=== PATIENT | female | born 1990 | race Caucasian/White ===

== ENCOUNTER 2020-05-07 14:14 | Emergency (ER) | payer MEDICAID, SELFPAY ==
[2020-05-07 14:23] VITALS: BP 129/78; PULSE 62; RESP 16; TEMP 36.5; O2SAT 98; BMI 20.7
--- NOTE | 2020-05-07 14:48 | XR_ITS ---
EXAMINATION: XR LUMBOSACRAL SPINE CLINICAL INFORMATION: Pain following fall COMPARISON: Remote CT abdomen and pelvis 04/12/2017, axial views. TECHNIQUE: Three views of the lumbosacral spine. FINDINGS: There is normal lumbar segmentation with 5 nonrib-bearing lumbar vertebrae of normal height and normal lumbar lordosis. There is gentle levocurvature. Limbus vertebrae is seen at anterior superior corner L5, in retrospect suggested on prior CT 2007 (series 102 image 95/175). There is no lumbar vertebral compression or visible acute fracture or spondylolisthesis. No focal disc narrowing. The SI joints and visualized sacrum are unremarkable. XR/XR lumbar spine 2-3V IMPRESSION: 1. Gentle levocurvature lumbar spine. Normal lumbar lordosis. 2. 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 3. No acute vertebral compression, spondylolisthesis, disc narrowing.
--- NOTE | 2020-05-07 16:12 | ED.BACK ---
HPI - Back Pain/Injury General Chief Complaint: Back Pain/Injury Stated Complaint: fell hurt back Time Seen by Provider: 05/07/20 14:48 Source: patient Mode of arrival: ambulatory Limitations: no limitations History of Present Illness HPI Narrative: 29-year-old female who denies any significant past medical history presents today with complaint of lower back pain pain status post fall yesterday. States she was mopping and had a fall where she slipped and tried to prevent her fall which she was able to but still landed on her buttock. States she felt like she pulled her muscle and has been having pain more in the lower lateral aspect of the back. She otherwise denies any GI symptoms. No radiation of pain. Pain improved with immobilization worsen with certain movements. Prior history of back problems. Pertinent past history: prior back pain and recent trauma Timing: intermittent Severity: mild Similar Symptoms Previously: Yes Quality: aching Radiation: none Exacerbating factors: none Associated symptoms: denies other symptoms Treatments prior to arrival: cold therapy Work related injury: No Related Data Previous Rx's Medication Instructions Recorded cyclobenzaprine 5 mg PO TID PRN #14 tab 05/07/20 ibuprofen 800 mg PO Q8H PRN #30 tab 05/07/20 Allergies Allergy/AdvReac Type Severity Reaction Status Date / Time amoxicillin [AMOXICILLIN] Allergy Severe SWELLING, Unverified 01/08/20 16:43 DIFFICULTY BREATHING, rash and vomiting latex [LATEX] Allergy Mild RASH Unverified 01/08/20 16:43 Latex Allergy Unknown rash Uncoded 01/27/15 00:00 Review of Systems Review of Systems: Constitutional: No Weight loss, No Fever, No Chills, No Night Sweats, No Fatigue, No Malaise ENT/Mouth: No Hearing loss, No Ear Pain, No Nasal Congestion, No Sinus Pain, No Hoarseness, No sore throat, No Rhinorrhea, No Swallowing Difficulty Eyes: No Eye Pain, No Swelling, No Redness, No Foreign Body, No Discharge, No Vision Changes Cardiovascular: No Chest Pain Respiratory: No Dyspnea Gastrointestinal: No Nausea, No Vomiting, No Diarrhea, No Constipation, No abdominal Pain, No Hematochezia, No Melena Genitourinary: no irregular bleeding, No Dysuria, No Urinary Frequency, No Hematuria, No Urinary Incontinence, No Urgency, No Flank Pain, No Urinary Flow Changes Musculoskeletal: No joint pain, No Myalgias, No Joint Swelling Skin: No Skin Lesions, No rash Neuro: No Weakness, No Numbness, No Paresthesias, No Loss of Consciousness, No Dizziness, No Headache Psych: No Social Issues Heme/Lymph: No Bruising, No Bleeding,No Lymphadenopathy Endocrine: No Polyuria, No Polydipsia, No Temperature Intolerance Yes all other systems are reviewed and are negative [facility] Past Medical History Medical History (Updated 05/07/20 @ 16:20 by Ayaz Lees NP) No known health problems Social History Social History Advance Directives: No Advance Directives Information Provided: No Physical Exam Vital Signs: Vital Signs: Last Vital Signs Temp 97.7 F 05/07/20 14:23 Pulse 62 05/07/20 14:23 Resp 16 05/07/20 14:23 BP 129/78 05/07/20 14:23 Pulse Ox 98 05/07/20 14:23 Body Mass Index 20.7 Reviewed Const: General: cooperative and healthy appearing; No acute distress or intoxicated appearing Nutritional Appearance: average body habitus Orientation/consciousness: patient oriented x3 HENMT: Head: Yes normal to inspection Ears: hearing grossly normal bilaterally Eyes: General: appearance normal, both eyes and all related structures Visual Sifuentes: normal visual sifuentes by confrontation Neck: Neck: Yes normal visual inspection, No positive Brudzinski's sign, No positive Kernig's sign and No tender Thyroid: Thyroid normal Chest: Chest palpation & inspection: normal inspection of the chest Resp: Effort & Inspection: normal respiratory effort Cardio: Jugular venous distension: no JVD Rate: regular rate Rhythm: regular rhythm Heart sounds: S1 normal heart sound present and S2 normal heart sound present GI: Inspection: Yes normal to inspection Percussion: Yes normal to percussion Auscultation: normal bowel sounds : General: Yes no CVA tenderness Back/Spine/Pelvis: Back: no CVA tenderness Thoracic/Lumbar Spine: paraspinal muscle tenderness bilaterally, No thoracic spinal tenderness, No lumbar spinal tenderness and No straight leg raise positive Skin: General skin exam: no rashes or lesions noted Neuro: General: patient oriented x3 Extrem: General: Yes normal to inspection Course Course Course Narrative: AP of lumbar strain status post mechanical fall. Lumbar spine x-ray without acute findings. No low back pain red flags. Overall nontoxic appearing. Ambulatory with steady gait walking from triage. Will discharge with muscle relaxer, supportive care, return follow-up precautions provided. Stable for discharge. She missed work today is requesting work note. Did this with provided with outpatient follow-up. MDM - Back Pain/Injury Lab Data Attestation: I reviewed the patient's lab results. Imaging Data Lumbar spine x-ray: Radiologist's impression: [id number] [place] [address] XRay Report Signed Patient: Sayda GallardoMR#: [id number] : 1990Acct:[id number] Age/Sex: 29 FADM Date: 05/07/20 Loc: HO.ED Attending Dr: Ordering Physician: Ayaz Lees NP Date of Service: 05/07/20 Procedure(s): XR lumbar spine 2-3V Accession Number(s): [id number] cc: Ayaz Lees COMMUTATOR PRESSER~ EXAMINATION: XR LUMBOSACRAL SPINE CLINICAL INFORMATION: Pain following fall COMPARISON: Remote CT abdomen and pelvis 04/12/2017, axial views. TECHNIQUE: Three views of the lumbosacral spine. FINDINGS: There is normal lumbar segmentation with 5 nonrib-bearing lumbar vertebrae of normal height and normal lumbar lordosis. There is gentle levocurvature. Limbus vertebrae is seen at anterior superior corner L5, in retrospect suggested on prior CT 2007 (series 102 image 95/175). There is no lumbar vertebral compression or visible acute fracture or spondylolisthesis. No focal disc narrowing. The SI joints and visualized sacrum are unremarkable. XR/XR lumbar spine 2-3V IMPRESSION: 1. Gentle levocurvature lumbar spine. Normal lumbar lordosis. 2. 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 3. No acute vertebral compression, spondylolisthesis, disc narrowing. Dictated By:ISHAAN DIALLO MD Signed By:<Electronically signed by ISHAAN DIALLO MD in OV>05/07/20 1543 DD/ 1448 TD/TT: Manager Instrumentation: DESMOND Discharge Plan Discharge Clinical Impression: Strain of lumbar region Patient Disposition: Home, Self-Care Instructions: Low Back Strain (ED), Lower Back Exercises (ED) Additional Instructions: The x-ray did not show any evidence of acute fracture Take your muscle relaxant and ibuprofen as prescribed No drinking alcohol or driving while taking muscle relaxants Return if any concerns or worsening symptoms Thank you Prescriptions: New ibuprofen 800 mg tablet 800 mg PO Q8H PRN (Reason: pain) Qty: 30 RF: 0 cyclobenzaprine 5 mg tablet 5 mg PO TID PRN (Reason: muscle spasm) Qty: 14 RF: 0 Referrals: Physician,Unknown [Primary Care Provider] - 1 week Stand Alone Forms: Work/School Release Interventions: ED Discharge Assessment Last Done: 05/07/20 16:31 Discharge Date/Time: 05/07/20 16:32
== END 2020-05-07 16:32 | disposition home or self-care (01) ==
PROVIDERS: Emergency Provider Emergency Medicine
DX: S39.012A Strain of muscle, fascia and tendon of lower back, initial encounter (principal); W01.0XXA Fall on same level from slipping, tripping and stumbling without subsequent striking against object, initial encounter; Y93.E5 Activity, floor mopping and cleaning; Y92.019 Unspecified place in single-family (private) house as the place of occurrence of the external cause; Y99.9 Unspecified external cause status
CPT/HCPCS: 72100; 99283

== ENCOUNTER 2020-09-05 13:01 | Emergency (ER) | payer MEDICAID, SELFPAY ==
--- NOTE | ~2020-09-05 | US_ITS ---
EXAM: Pelvic Ultrasound OB CLINICAL INDICATION: Positive test. Lower abdominal pain. Unknown last menstrual period. COMPARISON: No similar recent prior imaging available for comparison. TECHNIQUE: The pelvis was evaluated using transabdominal imaging. FINDINGS: A single intrauterine gestational sac is identified. A yolk sac and pole are demonstrated. A heart rate of 174 bpm was documented. motion identified. [place]-rump length of 2.7 cm corresponds with an estimated gestational age of 9 weeks and 4 days. A small subchorionic hemorrhage is visualized which measures approximately 2.5 cm in maximum dimension. The right ovary measures approximately 2.6 x 2.1 x 1.9 cm and is normal in appearance. The left ovary was not clearly visualized. No gross free pelvic fluid. US/US OB <= 14 weeks fetus IMPRESSION: 1. Single live intrauterine gestation with an estimated gestational age of 9 weeks and 4 days. This corresponds with an estimated due date of approximately 04/06/2021. 2. Small subchorionic hemorrhage present.
[2020-09-05 13:04] VITALS: BP 112/76; PULSE 80; RESP 16; TEMP 36.9; O2SAT 99; BMI 21.2
[2020-09-05 13:41] LABS: Glucose Urine UA NEG (NEG); Leukocyte Esterase Urine NEG (NEG); Nitrite Urine NEG (NEG); PH 6.5 (5.0-8.0); Urine Blood NEG (NEG); Urine Ketones 15 MG/DL (NEG); Urine Protein NEG (NEG-TRACE)
[2020-09-05 13:42] LABS: Appearance Urine CLEAR; Color Urine YELLOW
[2020-09-05 13:54] LABS: Bacteria Urine 1+ /LPF; Mucus Urine 1+ /LPF; RBC Urine 0 /HPF (0); Squamous Epithelial Cell Urine 2+ /LPF; WBC Urine 0-2 /HPF (0-4)
[2020-09-05 14:51] LABS: MANUAL DIFF FLAG NO
[2020-09-05 14:52] LABS: Basophils Percent Auto 0.3 % (0-2); Eosinophils Absolute Auto 0.1 X10*3/uL (0.0-0.4); Eosinophils Percent Auto 1.1 % (0-4); Hematocrit 34.4 % (37-47); Hemoglobin 11.5 g/dl (12.0-16.0); Imm Gran Abs Auto 0.04 X10*3/uL (0.00-0.03); Imm Gran Pct Auto 0.3 % (0.0-0.4); Lymphocytes Percent Auto 16.4 % (20-40); Mean Corpuscular HGB Conc 33.4 g/dl (31.0-35.0); Mean Corpuscular Hemoglobin 28.4 pg (27.0-33.0); Mean Corpuscular Volume 84.9 fL (80-98); Mean Platelet Volume 10.2 fL (9.4-12.3); Monocytes Absolute Auto 0.8 X10*3/uL (0.1-1.2); Monocytes Percent Auto 6.3 % (2-11); Neutrophils Absolute Auto 9.3 X10*3/uL (2.0-8.3); Neutrophils Percent Auto 75.6 % (45-73); Platelet Count 223 X10*3/uL (160-400); Red Blood Count 4.05 X10*6/uL (4.20-5.50); White Blood Count 12.3 X10*3/uL (4.8-10.8)
[2020-09-05] MEDS: 0.9 % Sodium Chloride 1,000 ML 999 ML IVCONT (14:57)
[2020-09-05] MEDS: ondansetron HCL 4 MG/2 ML VIAL IVPUSH (14:57)
[2020-09-05 15:08] LABS: Prothrombin Time 12.3 SEC (10.8-13.0)
--- NOTE | 2020-09-05 15:25 | ED.PREGNANCY ---
HPI - General Chief complaint: Abdominal Pain Stated complaint: MULTI COMPLAINTS PREG Time Seen by Provider: 09/05/20 14:23 Source: patient Mode of arrival: ambulatory Limitations: no limitations History of Present Illness HPI Narrative: 30-year-old female with 6 total past pregnancies 4 children who are alive no complications with those pregnancies, 1 miscarriage and 1 presenting to the ED with complaints of nausea/vomiting with lower abdominal/suprapubic abdominal pain for the past 9 days worse today. Reports that she was seen at [facility] and had a positive test although they gave her p.o. nausea medications and did some blood work otherwise they made her go back to the waiting room she reports and she did not receive any IV fluids or an ultrasound of her abdomen. She reports she will follow up here at [facility] for OB due to her insurance although she has not had any OB care for this . She reports associated abnormal vaginal discharge were appears dark brown like old blood. Reports her last menstrual period was in July. Reports she was due for her menstrual period 09/03/2020 although missed it. She denies any fevers, chest pain, shortness of breath, cough, palpitations, upper abdominal pain, back pain, dysuria, hematuria, diarrhea or constipation or any other symptoms complaints or concerns at this time. MD Complaint: abdominal pain and vaginal discharge Onset (ago): day(s) (9 days worse today) Pain Consistency: constant Location: pelvis and abdomen Severity: mild Quality: Cramping and Aching Relieving factors: none Exacerbating factors: other (Nausea/vomit) Associated symptoms: nausea and vomiting Vaginal discharge: other (Dark brown looks like old blood per patient) Vaginal bleeding: none Date of Last Menstrual Period: 08/05/20 Patient : Yes OB History - Current : no complications OB History - Previous Pregnancies: no complications care: none Related Data : 7 Para: 4 Total number of abortions (spontaneous and elective): 2 Previous Rx's Medication Instructions Recorded cyclobenzaprine 5 mg PO TID PRN #14 tab 05/07/20 ibuprofen 800 mg PO Q8H PRN #30 tab 05/07/20 acetaminophen [Tylenol Extra 1,000 mg PO QID PRN #14 tab 09/05/20 Strength] ondansetron HCl [Zofran] 4 mg PO Q8H PRN #30 tab 09/05/20 prenat.vits,katie,sfu-rrak-hexdc 1 tab PO DAILY #30 tab 09/05/20 Allergies Allergy/AdvReac Type Severity Reaction Status Date / Time amoxicillin [AMOXICILLIN] Allergy Severe SWELLING, Unverified 01/08/20 16:43 DIFFICULTY BREATHING, rash and vomiting latex [LATEX] Allergy Mild RASH Unverified 01/08/20 16:43 Latex Allergy Unknown rash Uncoded 01/27/15 00:00 Review of Systems Review of Systems: Constitutional : No Fever, No Chills ENT/Mouth : No sore throat, No Rhinorrhea Eyes: No Eye Pain, No Redness Cardiovascular : No Chest Pain, No SOB Respiratory : No Cough, No Sputum, No Wheezing Gastrointestinal : Positive nausea/vomiting/abdominal pain, No Diarrhea Genitourinary : Positive abnormal vaginal discharge, No irregular bleeding, No Dysuria, No Urinary Frequency Musculoskeletal : No Myalgias Skin : No rash Neuro : No Weakness, No Headache Psych : No Anxiety/Panic, No Depression Heme/Lymph: No bruising, No Lymphadenopathy Endocrine : No Polyuria, No Polydipsia Yes all other systems are reviewed and are negative [facility] Past Medical History Attestation statement: The following information was validated with the patient. Medical History No known health problems : 7 Para: 4 Total number of abortions (spontaneous and elective): 2 Date of Last Menstrual Period: 08/05/20 Social History Social History Advance Directives: Yes Advance Directives Information Provided: Yes Advance Directives on File: No Patient : Yes Physical Exam Vital Signs: Vital Signs: Last Vital Signs Temp 99.1 F 09/05/20 16:23 Pulse 69 09/05/20 16:23 Resp 18 09/05/20 16:23 BP 129/73 09/05/20 16:23 Pulse Ox 100 09/05/20 16:23 Body Mass Index 21.2 vital signs have been reviewed as normal and appeared to be correct. Blood pressure normal. Heart rate normal. Respiration rate normal. Temperature normal. Oxygen saturation normal. Appearance: Alert. Oriented X3. No acute distress. Head: Normal external exam. Normocephalic. Atraumatic. No Hernandez signs noted. No raccoon eyes noted Eyes: PERRLA. EOMI. Conjunctiva and sclera normal. Eyelids normal. ENT: EAC normal. TM's Normal. Pharynx normal. Uvula midline. Moist mucous membranes. No trismus noted. No drooling noted. No muffled voice noted. Neck: Normal inspection. Neck supple. FROM. No adenopathy. Thyroid Normal. No meningeal signs. No neck mass noted. CVS: Normal heart rate and rhythm. Heart sound normal. No murmurs noted. Pulses normal throughout. Respiratory: No respiratory distress. Painless inspiration. Breath sounds normal. No wheezes/rales/rhonchi noted. Chest nontender. No accessory muscle usage noted or decreased air movement noted. Abdomen: Soft and mild suprapubic abdominal tenderness. Bowel sounds normal in all 4 quadrants. No distention noted. No organomegaly noted. No visible injury noted. : Supervised by ANIYA Holland. Normal external appearance of urethra. No lesions/lacerations or tenderness noted. Speculum exam normal appearance/palpation of vagina normal. Patient with a thin white vaginal discharge. No vaginal bleeding noted at this time. Otherwise no vaginal erythema. No foreign bodies noted. No vaginal laceration/lesions or active bleeding noted. No tissue present in vagina. No vaginal mass noted. No vaginal swelling noted. No vaginal tenderness noted. Normal appearance of cervix. Normal palpation of cervix. Cervical os is closed. No abnormal cervical discharge noted. No cervical lesion/mass. No Bartholin cyst noted. No cervical motion tenderness noted. Negative chandelier sign. Normal bimanual exam. Uterine size normal. Bladder normal to palpation. Uterine consistency normal. Normal cervical palpation. Uterine mobility normal. Uterine shape normal. Normal adnexa. Normal rectovaginal exam. Back: No CVA tenderness. Full range of motion noted. Skin: Skin warm and dry. Normal skin color. Normal skin turgor. No rashes/lesions/lacerations noted. Extremities: No lower extremity edema. Extremities exhibit normal range of motion. Extremities nontender. Neuro: Oriented X 3. No motor deficit. No sensory deficit. Reflexes normal. Course Course Course Narrative: 14:40pm - labs obtained and patient 1 [place] [address]. Mild anemia. BUN is 5. Total protein 6.4. Serum quant 162470 appropriately elevated. UA revealed 15 ketones otherwise no evidence of UTI. Urine is positive. Gonorrhea/chlamydia/bacterial vaginosis/Trichomonas and yeast pending at this time. Patient is O positive for blood type. First trimester ultrasound reveals single live intrauterine gestation with an estimated gestational age of 9 weeks and 4 days. This corresponds with an estimated due date of approximately 04/06/2021. 2. Small subchorionic hemorrhage present. - I consulted with who reported that this ultrasound appears normal to her and that the patient can follow-up as an outpatient. Patient now tolerating p.o. fluids and solids after given IV fluids and IV Zofran therefore Dr. Sequeira reported if the Zofran work for the patient then she can be discharged on this therefore will DC home with instructions return if any new or worsening symptoms to follow-up with OBGYN. Patient understands agrees with this plan. MDM - OB/Uterine Contractions MDM Narrative Medical decision making narrative: 14:25pm - 30-year-old female with 6 total past pregnancies 4 children who are alive no complications with those pregnancies, 1 miscarriage and 1 presenting to the ED with complaints of nausea/vomiting with lower abdominal/suprapubic abdominal pain for the past 9 days worse today. Patient reports associated dark brown vaginal discharge. Has not had OB follow-up. Plans on following up here at [facility] for OB care. - Plan: Labs, perform a pelvic exam/speculum exam and obtain gonorrhea/chlamydia/bacterial vaginosis/yeast and Trichomonas panel, UA, UHCG. First trimester ultrasound. A L of IV fluids with 4 mg of IV Zofran then re-evaluate. Medical Records Attestation: I reviewed the patient's medical records. Lab Data Attestation: I reviewed the patient's lab results. Result diagrams: 09/05/20 14:46 09/05/20 14:46 Labs: Lab Results 09/05/20 09/05/20 09/05/20 Range/Units 13:24 13:24 14:46 WBC 12.3 H (4.8-10.8) X10*3/uL RBC 4.05 L (4.20-5.50) X10*6/uL Hgb 11.5 L (12.0-16.0) g/dl Hct 34.4 L (37-47) % MCV 84.9 (80-98) fL MCH 28.4 (27.0-33.0) pg MCHC 33.4 (31.0-35.0) g/dl RDW 17.0 H (11.0-16.0) % Plt Count 223 (160-400) X10*3/uL MPV 10.2 (9.4-12.3) fL Immature Gran % (Auto) 0.3 (0.0-0.4) % Neut % (Auto) 75.6 H (45-73) % Lymph % (Auto) 16.4 L (20-40) % Cecil % (Auto) 6.3 (2-11) % Eos % (Auto) 1.1 (0-4) % Baso % (Auto) 0.3 (0-2) % Lymph # (Auto) 2.0 (1.2-4.9) X10*3/uL Cecil # (Auto) 0.8 (0.1-1.2) X10*3/uL Eos # (Auto) 0.1 (0.0-0.4) X10*3/uL Baso # (Auto) 0.0 (0.0-0.2) X10*3/uL Abs Immat Gran (auto) 0.04 H (0.00-0.03) X10*3/uL Absolute Neuts (auto) 9.3 H (2.0-8.3) X10*3/uL Absolute Nucleated RBC 0.000 (0.0-0.012) X10*3/uL Nucleated RBC % (auto) 0.0 (0.0-0.2) /100WBC PT (10.8-13.0) SEC INR (0.9-1.1) Sodium (135-145) mmol/L Potassium (3.3-5.1) mmol/L Chloride (96-108) mmol/L Carbon Dioxide (22-29) mmol/L Anion Gap (12-20) BUN (9-16) mg/dL Creatinine (0.5-1.4) mg/dL Estim Creat Clear Calc Estimated GFR Random Glucose (60-115) mg/dL Calcium (8.4-10.2) mg/dL Magnesium (1.6-2.6) mg/dL Total Bilirubin (0.0-1.0) mg/dL AST (5-31) U/L ALT (0-31) U/L Alkaline Phosphatase (39-117) U/L Total Protein (6.5-8.0) g/dL Albumin (3.5-5.0) g/dL Beta HCG, Quant mIU/mL Urine Color YELLOW Urine Appearance CLEAR Urine pH 6.5 (5.0-8.0) Ur Specific Shepherd 1.010 (1.005-1.025) Urine Protein NEG (NEG-TRACE) MG/DL Urine Glucose (UA) NEG (NEG) MG/DL Urine Ketones 15 (NEG) MG/DL Urine Blood NEG (NEG) Urine Nitrite NEG (NEG) Ur Leukocyte Esterase NEG (NEG) Urine RBC 0 (0) /HPF Urine WBC 0-2 (0-4) /HPF Ur Squamous Epith Cells 2+ /LPF Urine Bacteria 1+ /LPF Urine Mucus 1+ /LPF Urine Test POSITIVE H (NEGATIVE) Blood Type 09/05/20 09/05/20 09/05/20 Range/Units 14:46 14:46 14:46 WBC (4.8-10.8) X10*3/uL RBC (4.20-5.50) X10*6/uL Hgb (12.0-16.0) g/dl Hct (37-47) % MCV (80-98) fL MCH (27.0-33.0) pg MCHC (31.0-35.0) g/dl RDW (11.0-16.0) % Plt Count (160-400) X10*3/uL MPV (9.4-12.3) fL Immature Gran % (Auto) (0.0-0.4) % Neut % (Auto) (45-73) % Lymph % (Auto) (20-40) % Cecil % (Auto) (2-11) % Eos % (Auto) (0-4) % Baso % (Auto) (0-2) % Lymph # (Auto) (1.2-4.9) X10*3/uL Cecil # (Auto) (0.1-1.2) X10*3/uL Eos # (Auto) (0.0-0.4) X10*3/uL Baso # (Auto) (0.0-0.2) X10*3/uL Abs Immat Gran (auto) (0.00-0.03) X10*3/uL Absolute Neuts (auto) (2.0-8.3) X10*3/uL Absolute Nucleated RBC (0.0-0.012) X10*3/uL Nucleated RBC % (auto) (0.0-0.2) /100WBC PT 12.3 (10.8-13.0) SEC INR 1.0 (0.9-1.1) Sodium 136 (135-145) mmol/L Potassium 3.3 (3.3-5.1) mmol/L Chloride 104 (96-108) mmol/L Carbon Dioxide 21 L (22-29) mmol/L Anion Gap 14 (12-20) BUN 5 L (9-16) mg/dL Creatinine 0.56 (0.5-1.4) mg/dL Estim Creat Clear Calc 129.7 Estimated GFR > 60 Random Glucose 75 (60-115) mg/dL Calcium 8.7 (8.4-10.2) mg/dL Magnesium 1.8 (1.6-2.6) mg/dL Total Bilirubin 0.4 (0.0-1.0) mg/dL AST 16 (5-31) U/L ALT 13 (0-31) U/L Alkaline Phosphatase 65 (39-117) U/L Total Protein 6.4 L (6.5-8.0) g/dL Albumin 3.8 (3.5-5.0) g/dL Beta HCG, Quant 331629 mIU/mL Urine Color Urine Appearance Urine pH (5.0-8.0) Ur Specific Shepherd (1.005-1.025) Urine Protein (NEG-TRACE) MG/DL Urine Glucose (UA) (NEG) MG/DL Urine Ketones (NEG) MG/DL Urine Blood (NEG) Urine Nitrite (NEG) Ur Leukocyte Esterase (NEG) Urine RBC (0) /HPF Urine WBC (0-4) /HPF Ur Squamous Epith Cells /LPF Urine Bacteria /LPF Urine Mucus /LPF Urine Test (NEGATIVE) Blood Type O Positive Imaging Data ultasound : Attestation: I personally reviewed and interpreted this imaging study as follows: Radiologist's impression: FINDINGS: A single intrauterine gestational sac is identified. A yolk sac and pole are demonstrated. A heart rate of 174 bpm was documented. motion identified. [place]-rump length of 2.7 cm corresponds with an estimated gestational age of 9 weeks and 4 days. A small subchorionic hemorrhage is visualized which measures approximately 2.5 cm in maximum dimension. The right ovary measures approximately 2.6 x 2.1 x 1.9 cm and is normal in appearance. The left ovary was not clearly visualized. No gross free pelvic fluid. US/US OB <= 14 weeks fetus IMPRESSION: 1. Single live intrauterine gestation with an estimated gestational age of 9 weeks and 4 days. This corresponds with an estimated due date of approximately 04/06/2021. 2. Small subchorionic hemorrhage present. Discharge Plan Discharge Clinical Impression: , Hyperemesis gravidarum Patient Disposition: Home, Self-Care Instructions: Hyperemesis Gravidarum (ED), at 11 to 14 Weeks (ED) Prescriptions: New ondansetron HCl [Zofran] 4 mg tablet 4 mg PO Q8H PRN (Reason: nausea and vomiting) Qty: 30 RF: 0 prenat.vits,katie,deu-tlxb-dnvcv Tablet 1 tab PO DAILY Qty: 30 RF: 0 acetaminophen [Tylenol Extra Strength] 500 mg tablet 1,000 mg PO QID PRN (Reason: fever or pain) Qty: 14 RF: 0 No Action ibuprofen 800 mg tablet 800 mg PO Q8H PRN (Reason: pain) Qty: 30 RF: 0 cyclobenzaprine 5 mg tablet 5 mg PO TID PRN (Reason: muscle spasm) Qty: 14 RF: 0 Referrals: Lexy Sequeira MD [Physician] - 2 days Print Language: Uzbek
[2020-09-05 15:28] LABS: Alanine Aminotransferase 13 U/L (0-31); Albumin Level 3.8 g/dL (3.5-5.0); Alkaline Phosphatase 65 U/L (39-117); Anion Gap 14 (12-20); Aspartate Amino Transferase 16 U/L (5-31); Bilirubin Total 0.4 mg/dL (0.0-1.0); Blood Urea Nitrogen 5 mg/dL (9-16); Calcium 8.7 mg/dL (8.4-10.2); Carbon Dioxide 21 mmol/L (22-29); Chloride 104 mmol/L (96-108); Creatinine Clr Calc Pharmacy 129.7; Estimated Glomerular Filt Rate > 60; Glucose Random 75 mg/dL (60-115); Magnesium 1.8 mg/dL (1.6-2.6); Potassium 3.3 mmol/L (3.3-5.1); Sodium 136 mmol/L (135-145); Total Protein 6.4 g/dL (6.5-8.0)
[2020-09-05 15:30] LABS: UPreg QC Valid YES; Urine Pregnancy POSITIVE (NEGATIVE)
[2020-09-05 15:48] VITALS: BP 126/77; PULSE 63; RESP 18; O2SAT 100
[2020-09-05 16:23] VITALS: BP 129/73; PULSE 69; RESP 18; TEMP 37.3; O2SAT 100
[2020-09-06 05:34] LABS: CT PCR NOT DETECTED (Not Detect.); NG PCR NOT DETECTED (Not Detect.)
[2020-09-06 08:34] LABS: BV Int Neg Control Negative (Negative); BV Int Pos Control Positive (Positive)
== END 2020-09-05 17:07 | disposition home or self-care (01) ==
PROVIDERS: Physician Assistant Medical; Emergency Provider Emergency Medicine
DX: O21.0 Mild hyperemesis gravidarum (principal); Z3A.11 11 weeks gestation of pregnancy
CPT/HCPCS: 36415; 76801; 80053; 81001; 81025; 83735; 84702; 85025; 85610; 86900; 86901; 87480; 87491; 87510; 87591; 87660; 96365; 96375; 99283; J2405

== ENCOUNTER → 2020-09-21 10:29 | Outpatient (BNVA) | payer MEDICAID, SELFPAY | PROVIDERS: Visit Provider Advanced Practice Midwife | DX: Z36.3 Encounter for antenatal screening for malformations (principal); O09.299 Supervision of pregnancy with other poor reproductive or obstetric history, unspecified trimester | CPT/HCPCS: 81025; 99212 ==

== ENCOUNTER 2020-09-24 12:46 | Outpatient (REF) | payer MEDICAID, SELFPAY | END 2020-09-24 12:47 | disposition home or self-care (01) | LOC: HO.US 12:46 | PROVIDERS: Visit Provider Advanced Practice Midwife | DX: Z13.89 Encounter for screening for other disorder (principal) ==

== ENCOUNTER → 2021-01-06 13:49 | Outpatient (BNVA) | payer MEDICAID, SELFPAY | PROVIDERS: Visit Provider Advanced Practice Midwife | DX: O09.32 Supervision of pregnancy with insufficient antenatal care, second trimester (principal); O09.292 Supervision of pregnancy with other poor reproductive or obstetric history, second trimester; Z3A.27 27 weeks gestation of pregnancy; Z86.32 Personal history of gestational diabetes | CPT/HCPCS: 99212 ==

== ENCOUNTER 2021-01-11 09:16 | Outpatient (REF) | payer MEDICAID, SELFPAY | END 2021-01-11 09:17 | disposition home or self-care (01) | LOC: HO.LAB 09:16 | PROVIDERS: Visit Provider Advanced Practice Midwife | DX: O09.292 Supervision of pregnancy with other poor reproductive or obstetric history, second trimester (principal); O09.32 Supervision of pregnancy with insufficient antenatal care, second trimester; Z86.32 Personal history of gestational diabetes | CPT/HCPCS: 36415; 80048; 80076; 81003; 85025; 99212; 99283; 99284 ==

== ENCOUNTER 2021-01-11 17:17 | Emergency (ER) | payer MEDICAID, SELFPAY ==
[2021-01-11 19:15] VITALS: BP 145/70; PULSE 78; RESP 16; TEMP 37.3; O2SAT 99; BMI 24.4
[2021-01-11 19:32] LABS: MANUAL DIFF FLAG NO
[2021-01-11 19:46] LABS: Basophils Absolute Auto 0.1 X10*3/uL (0.0-0.2); Basophils Percent Auto 0.4 % (0-2); Eosinophils Absolute Auto 0.2 X10*3/uL (0.0-0.4); Eosinophils Percent Auto 1.8 % (0-4); Hematocrit 32.9 % (37-47); Hemoglobin 11.2 g/dl (12.0-16.0); Imm Gran Abs Auto 0.14 X10*3/uL (0.00-0.03); Imm Gran Pct Auto 1.1 % (0.0-0.4); Lymphocytes Absolute Auto 2.5 X10*3/uL (1.2-4.9); Mean Corpuscular Hemoglobin 30.9 pg (27.0-33.0); Mean Corpuscular Volume 90.9 fL (80-98); Mean Platelet Volume 10.5 fL (9.4-12.3); Monocytes Absolute Auto 0.9 X10*3/uL (0.1-1.2); Monocytes Percent Auto 6.8 % (2-11); Neutrophils Absolute Auto 9.3 X10*3/uL (2.0-8.3); Neutrophils Percent Auto 70.9 % (45-73); Platelet Count 257 X10*3/uL (160-400); Red Blood Count 3.62 X10*6/uL (4.20-5.50); White Blood Count 13.1 X10*3/uL (4.8-10.8)
[2021-01-11 19:54] LABS: Anion Gap 13 (12-20); Blood Urea Nitrogen 8 mg/dL (9-16); Calcium 8.4 mg/dL (8.4-10.2); Carbon Dioxide 19 mmol/L (22-29); Chloride 107 mmol/L (96-108); Creatinine Clr Calc Pharmacy 125.3; Estimated Glomerular Filt Rate > 60; Glucose Random 82 mg/dL (60-115); Potassium 3.7 mmol/L (3.3-5.1); Sodium 135 mmol/L (135-145)
[2021-01-11 20:28] VITALS: BP 113/56; PULSE 69; RESP 18; TEMP 36.8; O2SAT 100
[2021-01-11 20:30] VITALS: BP 115/55; PULSE 66
--- NOTE | 2021-01-11 20:31 | PC.NURSE ---
DESCRIBS CONSISTEND ABD PAIN SINCE WAKING FROM [place]. HAS MOVEMENT. HAS HEADACHE X4 HRS. NO PEDAL EDEMA. VOMITED X 1 AROUND 4PM.
--- NOTE | 2021-01-11 20:50 | PC.NURSE ---
HR 140. denies vag bleeding.
[2021-01-11 21:01] LABS: Appearance Urine HAZY; Color Urine YELLOW; Glucose Urine UA NEG (NEG); Leukocyte Esterase Urine NEG (NEG); Nitrite Urine NEG (NEG); Specific Gravity - Urine 1.025 (1.005-1.025); Urine Blood NEG (NEG); Urine Ketones NEG (NEG); Urine Protein NEG (NEG-TRACE)
[2021-01-11 21:03] VITALS: BP 116/62; PULSE 72; RESP 15; TEMP 36.8; O2SAT 100
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
[2021-01-11 22:10] LABS: Alanine Aminotransferase 6 U/L (0-31); Albumin Level 3.5 g/dL (3.5-5.0); Alkaline Phosphatase 92 U/L (39-117); Aspartate Amino Transferase 9 U/L (5-31); Bilirubin Direct < 0.2 mg/dL (0.0-0.5); Bilirubin Total 0.4 mg/dL (0.0-1.0); Total Protein 6.4 g/dL (6.5-8.0)
== END 2021-01-11 21:47 | disposition home or self-care (01) ==
PROVIDERS: Emergency Provider Internal Medicine
DX: O26.92 Pregnancy related conditions, unspecified, second trimester (principal); F41.1 Generalized anxiety disorder; Z3A.27 27 weeks gestation of pregnancy
CPT/HCPCS: 36415; 80048; 80076; 81003; 85025; 99283; 99284

== ENCOUNTER 2021-01-14 09:02 | Outpatient (REF) | payer MEDICAID, SELFPAY ==
--- NOTE | ~2021-01-14 | US_ITS ---
EXAMINATION: US OBSTETRICAL CLINICAL INFORMATION: A 30-year-old at 28.2 weeks of gestation Insufficient care Screening for anomaly COMPARISON: 09/05/2020 TECHNIQUE: Real-time transabdominal ultrasound was performed using C1-5 megahertz transducer. FINDINGS: A single, active, fetus is seen in vertex presentation. The placenta is anterior without previa, and the amniotic fluid volume is wnl. MEASUREMENTS: 1. Biparietal Diameter: 6.8 cm; 27.3 wks 2. Occipital Frontal Diameter: 8.8 cm 3. Head Circumference: 25.7 cm; 28.0 wks 4. Abdominal Circumference: 23.8 cm; 28.1 wks 5. Femur Length: 5.1 cm; 27.2 wks 6. Humerus Length: 4.6 cm; 27.0 wks 7. Tibia Length: 4.6 cm; 28.0 wks 8. Ulna Length: 4.3 cm; 27.4 wks 9. Lateral ventricle: 0.53 cm 10. Cerebellum: 3.3 cm; 30.4 wks 11. Cisterna Magna: 0.6 cm 12. Nuchal Fold: 4.0 mm 13. Heart Rate: 158 beats per minute Rt ovary: normal Lt ovary: normal Cervical length 4.3 cm on T/A. GESTATIONAL AGE: 1. Established GA: 28.2 wks 2. GA from [facility]: 27.5 wks ESTIMATED DATE OF DELIVERY: 1. Established MARS: 04/06/2021 2. MARS from [facility]: 04/10/2021 ANATOMY: The visualized anatomy includes but not limited to: 1. Cranium: Normal 2. Intracranial anatomy: cavum septum pellucidi, lateral ventricles, choroid plexus, cerebellum, posterior fossa, third and fourth ventricles. 3. face: orbits, lip/palate, profile, nasal bone 4. Heart: four-chamber view of the heart, ventricular septum, foramen ovale, pulmonary vein, left and right outflow tracts, three-vessel view, 3 vessel trachea view, aortic and ductal arches, situs.. 5. Diaphragm: Normal 6. Abdominal wall: Normal 7. Cord Insertion: Normal 8. Spine: Cervical, thoracic, lumbar, sacral. 9. Stomach: Normal size and shape 10. Right Kidney: Normal 11. Left Kidney: Normal 12. 3 vessel cord: Normal 13. Upper extremity: Open hands, fifth digit. 14. Lower extremity: Tibia, fibula, bilateral feet. 15. Bladder: Normal 16. Genitalia: Female, patient not aware US/US OB /maternal detail IMPRESSION: 1. Single, living, intrauterine with appropriate biometry. 2. Normal survey DISCUSSION: I reviewed today's ultrasound findings. We discussed the limitations of ultrasound in diagnosing aneuploidy and other congenital abnormalities. I reviewed the differences between screening test and diagnostic test. N IPT was offered but declined. Amniocentesis was not discussed given her gestational age. She was informed that the baseline incidence of congenital abnormalities is approximately 3-5%. Not all these conditions are diagnosable in utero. RECOMMENDATIONS: 1. Follow-up when necessary Thank you for allowing me to participate in her care. This note was generated with a voice recognition program. Please excuse any errors which may have been overlooked during my review of this note. Sometimes these errors may affect the content or meaning of a given sentence.
== END 2021-01-14 09:03 | disposition home or self-care (01) ==
LOC: HO.US 09:02
PROVIDERS: Visit Provider Advanced Practice Midwife
DX: O09.292 Supervision of pregnancy with other poor reproductive or obstetric history, second trimester (principal); O09.32 Supervision of pregnancy with insufficient antenatal care, second trimester; Z36.3 Encounter for antenatal screening for malformations; Z86.32 Personal history of gestational diabetes
CPT/HCPCS: 76811

== ENCOUNTER → 2021-02-01 13:28 | Outpatient (BNVA) | payer MEDICAID, SELFPAY | PROVIDERS: Visit Provider Advanced Practice Midwife | DX: O09.33 Supervision of pregnancy with insufficient antenatal care, third trimester (principal); O09.293 Supervision of pregnancy with other poor reproductive or obstetric history, third trimester; Z86.32 Personal history of gestational diabetes; Z3A.30 30 weeks gestation of pregnancy | CPT/HCPCS: 99212 ==

== ENCOUNTER 2023-04-11 19:14 | Outpatient (REF) | payer MEDICAID, SELFPAY ==
[2023-04-11 20:05] LABS: Influenza A PCR NEGATIVE (Negative); Influenza B PCR NEGATIVE (Negative); Resp Syncy Virus RNA Qual PCR NEGATIVE (Negative); SARS COV2 PCR INHOUSE NEGATIVE (Negative)
== END 2023-04-11 19:15 | disposition home or self-care (01) ==
LOC: HO.HHCLNP 19:14
PROVIDERS: Visit Provider Emergency Medicine
DX: Z11.52 Encounter for screening for COVID-19 (principal); R68.89 Other general symptoms and signs
CPT/HCPCS: 0241U; 87070